=== PATIENT | male | born 1950 | race Caucasian/White ===

== ENCOUNTER 2019-10-22 10:14 | Outpatient (CLI) | payer MEDICARE, SELFPAY ==
--- NOTE | ~2019-10-22 | CT_ITS ---
EXAMINATION: CTA chest DATE: 10/22/2019 11:00 INDICATION: Coronary artery disease, history of ascending aortic aneurysm TECHNIQUE: Computed tomographic angiography (CTA) of the chest was performed with 100 mL Omnipque-350 intravenous contrast. Maximum intensity projection 3D-reconstructions of the aorta and other arterie s were constructed by the technologist on a separate workstation. The dose-length product (DLP) was 2 68.33 mGy-cm. Automated exposure control and iterative reconstruction technique were employed. COMPARISON: 11/02/2018 FINDINGS: There is stable enlargement of the ascending aorta measuring 4.6 cm at the sinuses of Valsa lva. No dissection is identified. The heart size is normal. There is calcified coronary artery athero sclerosis. There is mild emphysema. Dependent atelectasis is noted. Calcified pulmonary nodules and c alcified subcarinal lymph nodes are consistent with old granulomatous disease. There is no pleural e ffusion or pneumothorax. Mild bilateral gynecomastia is noted. There is severe thoracic spondylosis. IMPRESSION: 1. Stable enlargement of the ascending aorta at the level of the sinuses of Valsalva. No dissection. Reviewed, dictated and finalized at location A. N MAKER HAND IMPRESSION: 1. Stable enlargement of the ascending aorta at the level of the sinuses of Caitlin neno. No dissection.
[2019-10-22 10:50] LABS: Blood Urea Nitrogen 15 mg/dL (8-26); Estimated Glomerular Filt Rate > 60
== END 2019-10-22 10:15 | disposition home or self-care (01) ==
PROVIDERS: PCP Family Medicine; Visit Provider Internal Medicine Cardiovascular Disease
DX: I25.10 Atherosclerotic heart disease of native coronary artery without angina pectoris (principal); I71.2 Thoracic aortic aneurysm, without rupture
CPT/HCPCS: 71275; Q9967

== ENCOUNTER 2020-03-10 06:54 | Outpatient (CLI) | payer MEDICARE, SELFPAY ==
--- NOTE | ~2020-03-10 | CT_ITS ---
EXAMINATION: CT soft tissue neck w con EXAM DATE: 03/10/2020 07:38 INDICATION: Enlarged right-sided lymph nodes. TECHNIQUE: Spiral CT of the neck was performed following intravenous injection of 75 mL Omnipaque 350 . Axial, coronal and sagittal images were reviewed. The dose-length product (DLP) for this examinat ion was 534.34 mGy-cm. The exposure was tailored according to patient size (auto mA exposure control ), and iterative reconstruction (ASIR) was used as additional dose reduction technique. There is no prior study for comparison. FINDINGS: There is an externally placed marker with a normal-appearing submandibular gland deep to th is. The thyroid gland is unremarkable. The submandibular and parotid glands are symmetric. There is no cervical lymphadenopathy. There are no masses identified. The superior mediastinum is unre markable. The airway is unremarkable. Parapharyngeal and pre-glottic fat planes are preserved. Mild bilateral carotid bulb arterial sclerosis, causing mild stenosis on the right. Left vertebral ar brandy is dominant, no cervical arterial dissection. The orbits are unremarkable. Mild ethmoid mucop eriosteal thickening. Mastoid air cells are well aerated. Mild upper lobe emphysema. There is cervi ching spondylosis. IMPRESSION: No cervical lymphadenopathy or mass. Reviewed, dictated and finalized at location B.
[2020-03-10 07:25] LABS: Estimated Glomerular Filt Rate > 60
== END 2020-03-10 06:55 | disposition home or self-care (01) ==
LOC: ANHIMG 07:00
PROVIDERS: PCP Family Medicine; Visit Provider Physician Assistant
DX: R59.1 Generalized enlarged lymph nodes (principal); Z72.0 Tobacco use
CPT/HCPCS: 36415; 70491; Q9967

== ENCOUNTER 2021-11-02 08:23 | Outpatient (CLI) | payer MEDICARE, SELFPAY ==
--- NOTE | ~2021-11-02 | CT_ITS ---
EXAMINATION: CTA chest DATE: 11/02/2021 09:09 INDICATION: Thoracic aortic aneurysm TECHNIQUE: Computed tomographic angiography (CTA) of the chest was performed without and with 100 mL Omnipque-350 intravenous contrast. Maximum intensity projection 3D-reconstructions of the aorta and o ther arteries were constructed by the technologist on a separate workstation. The dose-length product (DLP) was 357.33 mGy-cm. Automated exposure control and iterative reconstruction technique were empl oyed. COMPARISON: 10/22/2019 FINDINGS: There is stable fusiform enlargement of the ascending aorta measuring 4.6 cm at the sinuses of Valsalva. No dissection is identified. There is mild emphysema. There is mild dependent atelectas is. The heart size is normal. There is no pleural effusion or pneumothorax. Bilateral gynecomastia is noted. Calcified pulmonary nodules and calcified subcarinal lymph nodes lymph nodes are consistent w ith old granulomatous disease. There is severe thoracic spondylosis. IMPRESSION: 1. Stable fusiform aneurysm of the ascending aorta at the sinuses of Valsalva without dissection. Reviewed, dictated and finalized at location F. IBILITY CONSULTANT IMPRESSION: 1. Stable fusiform aneurysm of the ascending aorta at the sinuses of Valsalva w ithout dissection.
[2021-11-02 08:59] LABS: Estimated Glomerular Filt Rate > 60
== END 2021-11-02 08:24 | disposition home or self-care (01) ==
PROVIDERS: PCP Family Medicine; Visit Provider Internal Medicine Cardiovascular Disease
DX: I71.2 Thoracic aortic aneurysm, without rupture (principal)
CPT/HCPCS: 71275; Q9967

== ENCOUNTER 2022-08-18 07:55 | Outpatient (CLI) | payer MEDICARE, SELFPAY ==
--- NOTE | ~2022-08-18 | CT_ITS ---
EXAMINATION: CTA chest DATE: 08/18/2022 08:27 INDICATION: Ascending aortic aneurysm TECHNIQUE: Computed tomography angiography (CTA) of the chest was performed with 100 mL Omnipaque-350 intravenous contrast timed to evaluate the pulmonary arteries. Coronal maximum intensity projection 3D-reconstructions were created by the technologist. Automated exposure control and iterative reconst ruction technique were employed. Exam dose: 519.12 mGy-cm total exam DLP. COMPARISON: November 02, 2021 CTA chest FINDINGS: The ascending aorta at the sinuses of Valsalva measures up to approximately 4.4 cm maximal diameter. Mid ascending aorta measures approximately 3.5 cm diameter. Mid aortic arch measures approx imately 2.6 cm diameter. Descending thoracic aorta measures approximately 2.4 cm diameter. No thoraci c aortic dissection. The abdominal aorta in the suprarenal and renal level is of normal caliber, with atherosclerotic calc ification, without dissection. Calcifications at the origins of the celiac and superior mesenteric an d renal arteries. Normal heart size. Thoracic aortic, great vessel and coronary artery calcifications. Heart size is normal. No pericardial or pleural effusion. Normal size and homogeneous enhancement of the thyroid gland. No hilar or mediastinal mass lesion or lymphadenopathy. Calcified subcarinal nodes, left lower lobe calcified pulmonary granulomas and calci fied splenic granulomas, consistent with old granulomatous disease. Minimal dependent primarily right lower lobe atelectasis. Mild emphysematous changes. No pulmonary in filtrate or consolidation or suspicious pulmonary mass lesion is noted. Normal morphology of the adrenal glands. Cholelithiasis. No gallbladder wall thickening or pericholecystic fluid or fat stranding. Small sliding hiatal hernia. Degenerative disc disease in the lower cervical spine. Degenerative change of the thoracic spine incl uding diffuse idiopathic skeletal hyperostosis in the lower thoracic region. No suspicious osteolytic or osteoblastic lesions are noted. IMPRESSION: Atherosclerosis; no interval enlargement of ascending aorta since 11/02/2021 Mild emphysema Cholelithiasis Small sliding hiatal hernia Reviewed, dictated and finalized at Location A. Reviewed, dictated and finalized at location B. TECHNICIAN IMPRESSION: Atherosclerosis; no interval enlargement of ascending aorta since Mild emphysema Cholelithiasis Small sliding hiatal hernia
[2022-08-18 08:20] LABS: Estimated Glomerular Filt Rate > 60
== END 2022-08-18 07:56 | disposition home or self-care (01) ==
PROVIDERS: PCP Family Medicine; Visit Provider Internal Medicine Cardiovascular Disease
DX: I71.40 Abdominal aortic aneurysm, without rupture, unspecified (principal); I25.10 Atherosclerotic heart disease of native coronary artery without angina pectoris; J43.9 Emphysema, unspecified; K80.20 Calculus of gallbladder without cholecystitis without obstruction; K44.9 Diaphragmatic hernia without obstruction or gangrene
CPT/HCPCS: 71275; Q9967

== ENCOUNTER 2023-03-05 13:55 | Emergency (ER) | payer MEDICARE, SELFPAY ==
[2023-03-05 14:02] VITALS: BP 142/72; PULSE 79; RESP 16; TEMP 36.6; O2SAT 99
--- NOTE | 2023-03-05 14:07 | ED.SKABFB ---
HPI - Skin/Abscess/Foreign Bdy General Chief complaint: Skin/Abscess/Foreign Body Stated complaint: bump on left side Time Seen by Provider: 03/05/23 14:08 Source: patient Mode of arrival: ambulatory Limitations: no limitations History of Present Illness HPI narrative: 72 y/o male presented for c/o 'bump on back' first noticed about one week ago. Reports soft round area to left lower back. Denies any pain, redness, or drainage from the site. Denies injury. Patient has history of basal cell and followed with dermatology but has not been in a few years. Denies any other skin concerns at this time. Related Data Home Medications Medication Instructions Recorded Confirmed atorvastatin 40 mg tablet 40 mg PO DAILY 08/15/19 03/05/23 cholecalciferol (vitamin D3) 25 1,000 unit PO DAILY 08/15/19 01/25/23 mcg (1,000 unit) chewable tablet clopidogrel 75 mg tablet 75 mg PO DAILY 08/15/19 01/25/23 metoprolol succinate 25 mg 25 mg PO DAILY 08/15/19 03/05/23 tablet,extended release 24 hr multivitamin 1 tablet PO DAILY 08/15/19 03/05/23 trandolapril 2 mg tablet 2 mg PO DAILY 08/15/19 03/05/23 aspirin 81 mg tablet,delayed 81 mg PO DAILY 11/02/19 03/05/23 release ezetimibe 10 mg tablet 10 mg PO DAILY 11/10/20 03/05/23 Allergies Allergy/AdvReac Type Severity Reaction Status Date / Time No Known Allergies Allergy Verified 01/25/23 09:05 Review of Systems Review of Systems: CONSTITUTIONAL: Denies body aches, fever, chills, or sweats. EYES: Denies visual changes, redness, or discharge. ENT: Denies rhinorrhea, congestion CARDIOVASCULAR: Denies chest pain, palpitations, or edema. RESPIRATORY: Denies cough or dyspnea. GASTROINTESTINAL: Denies abdominal pain, nausea, vomiting, or diarrhea. SKIN: per HPI MUSCULOSKELETAL: Denies back pain, joint pain, or myalgia. NEUROLOGIC: Denies headache, numbness, tingling, or weakness. [facility] Past Medical History Medical History (Updated 03/05/23 @ 14:32 by Tania Black, MEDTRONICS TECHNICIAN) Ascending aortic aneurysm Atherosclerotic heart disease of [place] coronary artery without angina pectoris Hypertensive heart disease without heart failure Paroxysmal atrial fibrillation Type 2 diabetes mellitus with hyperglycemia Surgical History Surgical History History of bilateral cataract extraction Family History Family History Sibling Patient's brother is in good health Mother Carcinoma of colon Social History Social History Smoking packs per day: 0.75 Smoking cigarettes per day: 15.0 Years smoked: 27 Smoking pack-years: 20.25 Smoking status: Former smoker Tobacco type: cigarettes Second hand tobacco smoke exposure: No Smoking end date: 09/12/16 Alcohol intake: never Substance use: never Substance use type: does not use Living arrangements: with family Occupation/Education: retired Gender identity (if verbalized by the patient): Male Sexual Orientation (if Verbalized by the Patient): Straight or Heterosexual Comments At time of signature, I have reviewed and agree with nursing past medical, surgical, social and family history unless otherwise noted. Please see nursing chart for further information. There is no relevant family history pertinent to the presenting complaint Exam Narrative: GENERAL: Well-appearing HEAD: Normocephalic, atraumatic. EYES: conjunctivae clear, and EOMI. ENT: Mucous membranes moist. Oropharynx without edema, erythema or lesions. NECK: Supple. No lymphadenopathy CHEST: Clear to auscultation. HEART: Regular rate and rhythm. SKIN: Warm, dry. Left lower back approx 10th rib area with approx 6cm diameter soft, moveable, nontender slightly raised area c/w lipoma. No induration, fluctuance, drainage, bruising or redness. NEURO: Alert and oriented x3.
== END 2023-03-05 14:17 | disposition home or self-care (01) ==
PROVIDERS: Emergency Provider Nurse Practitioner Family; PCP Family Medicine
DX: D17.1 Benign lipomatous neoplasm of skin and subcutaneous tissue of trunk (principal); Z87.891 Personal history of nicotine dependence; I25.10 Atherosclerotic heart disease of native coronary artery without angina pectoris; I11.9 Hypertensive heart disease without heart failure; I48.0 Paroxysmal atrial fibrillation; E11.9 Type 2 diabetes mellitus without complications; Z79.82 Long term (current) use of aspirin
CPT/HCPCS: 99211; G0463

== ENCOUNTER → 2023-03-21 08:32 | Outpatient (CLI) | payer MEDICARE, SELFPAY ==
--- NOTE | ~2023-03-21 | US_ITS ---
EXAMINATION: US soft tissue chest INDICATION: Soft tissue mass of left lateral chest TECHNIQUE: Limited ultrasound is performed in the area of clinical interest. COMPARISON: 05/31/2015 FINDINGS: There appears to be a small hernia of the left flank in the area of clinical concern. When compared to prior CT examinations, this corresponds to a lateral hernia of the left lower chest/flank containing fat and nonobstructed bowel. No suspicious mass is identified. IMPRESSION: 1. Small hernia of the left flank. Reviewed, dictated and finalized at location B.
== END ==
PROVIDERS: PCP Family Medicine; Visit Provider Physician Assistant
DX: R22.2 Localized swelling, mass and lump, trunk (principal)
CPT/HCPCS: 76604

== ENCOUNTER 2023-11-04 12:37 | Emergency (ER) | payer MEDICARE, SELFPAY ==
[2023-11-04 12:45] VITALS: BP 138/74; PULSE 64; RESP 20; TEMP 35.9; O2SAT 99
--- NOTE | 2023-11-04 12:50 | ED.GENADULT ---
HPI - General Adult General Chief complaint: Unspecified Stated complaint: Jaw Pain Time Seen by Provider: 11/04/23 12:50 Source: patient, RN notes reviewed and old records reviewed Mode of arrival: ambulatory Limitations: no limitations History of Present Illness HPI narrative: 73-year-old male presents to the [facility] with left jaw pain when the eating. Started this morning when he was eating breakfast. Pain does not radiate anywhere. Has caps, partial dental Minor amount of swelling noted Onset (ago): hour(s) Treatments prior to arrival: none Related Data Home Medications Medication Instructions Recorded Confirmed atorvastatin 40 mg tablet 40 mg PO DAILY 08/15/19 09/27/23 cholecalciferol (vitamin D3) 25 1,000 unit PO DAILY 08/15/19 09/27/23 mcg (1,000 unit) chewable tablet clopidogrel 75 mg tablet 75 mg PO DAILY 08/15/19 09/27/23 metoprolol succinate 25 mg 25 mg PO DAILY 08/15/19 09/27/23 tablet,extended release 24 hr multivitamin 1 tablet PO DAILY 08/15/19 09/27/23 trandolapril 2 mg tablet 2 mg PO DAILY 08/15/19 09/27/23 aspirin 81 mg tablet,delayed 81 mg PO DAILY 11/02/19 09/27/23 release ezetimibe 10 mg tablet 10 mg PO DAILY 11/10/20 09/27/23 Allergies Allergy/AdvReac Type Severity Reaction Status Date / Time No Known Allergies Allergy Verified 09/27/23 09:33 Review of Systems Review of Systems: All systems reviewed & are unremarkable except as noted in HPI and below Constitutional: Constitutional: Reports no additional constitutional complaints Eyes: Eyes: Reports no additional eye complaints ENT: Reports as per HPI Cardiovascular: Cardiovascular: Reports no additional cardiovascular complaints, Denies chest pain and Denies dyspnea Respiratory: Respiratory: Reports no additional respiratory complaints, Denies chest congestion, Denies cough and Denies dyspnea Gastrointestinal: Gastrointestinal: Reports no additional gastrointestinal complaints, Denies abdominal pain, Denies nausea and Denies vomiting Musculoskeletal: Musculoskeletal: Reports no additional musculoskeletal complaints Integumentary/Breasts: Skin/Breast: Reports system reviewed and no additional complaints, except as docu Neurologic: Reports system reviewed and no additional complaints, except as documented Psychiatric: Psychiatric: Reports no additional psychiatric complaints Allergic/Immunologic: Allergic/Immunologic: Reports no additional allergic/immunologic complaints PMFSH Past Medical History Medical History Ascending aortic aneurysm Atherosclerotic heart disease of [place] coronary artery without angina pectoris Hypertensive heart disease without heart failure Paroxysmal atrial fibrillation Type 2 diabetes mellitus with hyperglycemia Surgical History Surgical History History of bilateral cataract extraction Family History Family History Sibling Patient's brother is in good health Mother Carcinoma of colon Social History Social History Smoking packs per day: 0.75 Smoking cigarettes per day: 15.0 Years smoked: 27 Smoking pack-years: 20.25 Smoking status: Former smoker Tobacco type: cigarettes Second hand tobacco smoke exposure: No Smoking end date: 09/12/16 Alcohol intake: never Substance use: never Substance use type: does not use Living arrangements: with family Occupation/Education: retired Gender identity (if verbalized by the patient): Male Sexual Orientation (if Verbalized by the Patient): Straight or Heterosexual Comments At the time of my signature, I reviewed and agree with the nursing past medical, surgical, social, and family history. There is no relevant family history pertinent to the patient complaint. Exam Const: General: cooperative, he
== END 2023-11-04 13:04 | disposition home or self-care (01) ==
PROVIDERS: Emergency Provider Nurse Practitioner; PCP Family Medicine
DX: R68.84 Jaw pain (principal); Z87.891 Personal history of nicotine dependence; I25.10 Atherosclerotic heart disease of native coronary artery without angina pectoris; I10 Essential (primary) hypertension; I48.0 Paroxysmal atrial fibrillation; E11.9 Type 2 diabetes mellitus without complications; Z98.42 Cataract extraction status, left eye; Z98.41 Cataract extraction status, right eye; Z79.82 Long term (current) use of aspirin
CPT/HCPCS: 99213; G0463

== ENCOUNTER 2024-05-31 09:04 | Emergency (ER) | payer MEDICARE, SELFPAY ==
[2024-05-31 09:37] VITALS: BP 124/81; PULSE 71; RESP 16; TEMP 36.5; O2SAT 98
--- NOTE | 2024-05-31 10:15 | ED.URI ---
HPI - URI/Sore Throat General Chief Complaint: Upper Respiratory Infection Stated Complaint: Sinus Infection Symptoms Source: patient and RN notes reviewed Mode of arrival: ambulatory Limitations: no limitations History of Present Illness HPI Narrative: 74-year-old male with hx DM, paroxysmal afib, and CAD presented for complaint of nasal congestion and cough for over 1 week. The day prior to symptom onset he had COVID and flu vaccines. He denies shortness of breath, wheezing, nausea, vomiting diarrhea, fevers or body aches. Not taking anything for symptoms. MD elicited complaint: cough Related Data Home Medications Medication Instructions Recorded Confirmed atorvastatin 40 mg tablet 40 mg PO DAILY 08/15/19 05/31/24 cholecalciferol (vitamin D3) 25 1,000 unit PO DAILY 08/15/19 05/31/24 mcg (1,000 unit) chewable tablet clopidogrel 75 mg tablet 75 mg PO DAILY 08/15/19 05/31/24 metoprolol succinate 25 mg 25 mg PO DAILY 08/15/19 05/31/24 tablet,extended release 24 hr multivitamin 1 tablet PO DAILY 08/15/19 05/31/24 trandolapril 2 mg tablet 2 mg PO DAILY 08/15/19 05/31/24 aspirin 81 mg tablet,delayed 81 mg PO DAILY 11/02/19 05/31/24 release ezetimibe 10 mg tablet 10 mg PO DAILY 11/10/20 05/31/24 Allergies Allergy/AdvReac Type Severity Reaction Status Date / Time No Known Allergies Allergy Verified 05/31/24 09:33 Review of Systems Review of Systems: CONSTITUTIONAL: Denies malaise, chills, sweats, fever EYES: Denies visual changes, redness, or discharge ENT: Reports rhinorrhea, congestion, denies otalgia, sore throat CARDIOVASCULAR: Denies chest pain, palpitations, edema RESPIRATORY: Reports cough, post nasal drainage. Denies dyspnea GASTROINTESTINAL: Denies abdominal pain, nausea, vomiting, diarrhea SKIN: Denies rash or itching MUSCULOSKELETAL: Denies myalgia NEUROLOGIC: Denies headache All systems reviewed & are unremarkable except as noted in HPI and below PMFSH Past Medical History Medical History Ascending aortic aneurysm Atherosclerotic heart disease of [place] coronary artery without angina pectoris Hypertensive heart disease without heart failure Paroxysmal atrial fibrillation Type 2 diabetes mellitus with hyperglycemia Surgical History Surgical History History of bilateral cataract extraction Family History Family History Sibling Patient's brother is in good health Mother Carcinoma of colon Social History Social History Smoking packs per day: 0.75 Smoking cigarettes per day: 15.0 Years smoked: 27 Smoking pack-years: 20.25 Smoking status: Former smoker Tobacco type: cigarettes Second hand tobacco smoke exposure: No Smoking end date: 09/12/16 Alcohol intake: never Substance use: never Substance use type: does not use Living arrangements: with family Occupation/Education: retired Gender identity (if verbalized by the patient): Male Sexual Orientation (if Verbalized by the Patient): Straight or Heterosexual Comments At time of signature, I have reviewed and agree with nursing past medical, surgical, social and family history unless otherwise noted. Please see nursing chart for further information. There is no relevant family history pertinent to the presenting complaint Exam Narrative: GENERAL: well-appearing, nontoxic no acute distress. EYES: PERRLA, conjunctivae clear, yellow drainage to left inner canthus (2/2 dye) ENT: Mucous membranes moist. Bruising to nose (2/2 procedure) TMs pearly grant with dull light reflex bilaterally; no tragal tenderness. Oropharynx not erythematous without lesions or exudate, no drooling, no hoarseness, no trismus, uvula midline. No tripod positioning, muffled voice, soft palate or pharyngeal wall bulgi
== END 2024-05-31 10:26 | disposition home or self-care (01) ==
PROVIDERS: Emergency Provider Nurse Practitioner Family; PCP Family Medicine
DX: J06.9 Acute upper respiratory infection, unspecified (principal); Z87.891 Personal history of nicotine dependence; I25.10 Atherosclerotic heart disease of native coronary artery without angina pectoris; I10 Essential (primary) hypertension; I48.0 Paroxysmal atrial fibrillation; E11.9 Type 2 diabetes mellitus without complications; Z98.42 Cataract extraction status, left eye; Z98.41 Cataract extraction status, right eye
CPT/HCPCS: 99213; G0463

== ENCOUNTER 2024-06-28 08:12 | Outpatient (CLI) | payer MEDICARE, SELFPAY ==
--- NOTE | ~2024-06-28 | CT_ITS ---
EXAMINATION: CTA chest DATE: 06/28/2024 08:57 INDICATION: Ascending aortic aneurysm without rupture. TECHNIQUE: Computed tomographic angiography (CTA) of the chest was performed with 100 mL Omnipaque-35 0 intravenous contrast. Automated exposure control and iterative reconstruction technique were employ ed. The dose-length product was 523.44 mGy-cm. Maximum intensity projection 3D-reconstructions of the aorta and other arteries were constructed by the technologist on a separate workstation. COMPARISON: CT 08/18/22 FINDINGS: There is mild emphysema. There is mild atelectasis bilaterally. Calcified bilateral lung no dules and calcified left hilar lymph nodes are consistent with old granulomatous disease. Cardiomegal y is noted. There are coronary artery calcifications. No pericardial effusion. There is a gallstone i n the gallbladder, which is normal in size. There is mild bilateral gynecomastia. Ascending aorta ita sures 4.6 cm at the sinuses of Valsalva, 3.3 cm at the sinotubular junction, 3.6 cm in the mid ascend ing aorta, 2.8 cm at the aortic isthmus, and 2.9 cm in the mid descending aorta. IMPRESSION: 1. Ectasia of the aortic root measuring 4.6 cm at the sinuses of Valsalva. 2. Mild emphysema. Reviewed, dictated and finalized at location A.
[2024-06-28 08:51] LABS: Estimated Glomerular Filt Rate > 60
== END 2024-06-28 08:13 | disposition home or self-care (01) ==
PROVIDERS: PCP Family Medicine; Visit Provider Internal Medicine Cardiovascular Disease
DX: I71.21 Aneurysm of the ascending aorta, without rupture (principal); J43.9 Emphysema, unspecified
CPT/HCPCS: 71275; Q9967

== ENCOUNTER 2024-06-29 08:13 | Outpatient (CLI) | payer MEDICARE, SELFPAY ==
--- NOTE | 2024-06-29 15:26 | WPDPFTINT ---
PFT Procedure Performed PFT Procedure Performed Spirometry with Pre/Post Bronchodilator Plethysmography (Lung Vol) Diffusing Cap (DLCO) Flow Vol Loop PFT Interpretation This is a pulmonary function test with pre and post-bronchodilator spirometry, plethysmography and diffusing capacity. The test was performed and results interpreted in accordance with the 2019 and 2005 ATS/ERS Task Force guidelines respectively using the Global Lung Function Initiative-2012 reference equations. Patient demonstrated good effort and cooperation. Reproducibility criteria were met. The quality of the pre bronchodilator spirometry maneuver was Grade A and post bronchodilator spirometry maneuver was Grade A. Findings: Spirometry: There is decreased maximal expiratory airflow at low lung volumes with concave expiratory flow tracing. The contour the inspiratory flow tracing is normal. The pre bronchodilator FVC is 3.75 L, 89% predicted. The pre bronchodilator FEV1 is 2.50 L, 79% predicted. The pre bronchodilator FEV1: FVC ratio 67%. The post bronchodilator FVC is 3.81 L, representing a 2% increase. The post bronchodilator FEV1 is 2.44 L, representing a 2% decrease. The post bronchodilator FEV1: FVC ratio is 64%. Plethysmography: The total lung capacity is 7.52 L, 104% predicted. The functional residual capacity is 3.69 L, 95% predicted. The residual volume is 3.55 L, 138% predicted. The residual volume: Total lung capacity ratio is 47%. Diffusing capacity: The diffusing capacity unadjusted for hemoglobin and carboxyhemoglobin is 15.2, 59% predicted. The diffusing capacity adjusted for alveolar volume is 3.35, 89% predicted. Impression: The spirometry is normal without evidence of an obstructive abnormality. There is no significant improvement after inhaling a single dose of albuterol. The increase in residual volume to total lung volume ratio is consistent with hyperinflation. The diffusing capacity unadjusted for hemoglobin and carboxyhemoglobin is moderately decreased and normalizes when adjusted for alveolar volume. There are no prior studies for comparison
== END 2024-06-29 08:14 | disposition home or self-care (01) ==
LOC: ANHPFT 08:13
PROVIDERS: PCP Family Medicine; Visit Provider Physician Assistant Medical
DX: R05.3 Chronic cough (principal); Z87.891 Personal history of nicotine dependence
CPT/HCPCS: 94060; 94726; 94729

== ENCOUNTER 2024-08-21 08:15 | Outpatient (RCR) | payer MEDICARE, SELFPAY ==
[2024-07-03 08:13] VITALS: BMI 24.0
[2024-07-03 08:20] VITALS: BMI 24.0
[2024-08-21 08:20] VITALS: BMI 24.0
== END 2024-09-18 11:20 | disposition home or self-care (01) ==
LOC: ANHDMC 08:15
PROVIDERS: PCP Family Medicine; Visit Provider Family Medicine
DX: E11.65 Type 2 diabetes mellitus with hyperglycemia (principal); Z71.3 Dietary counseling and surveillance
CPT/HCPCS: 97802; 97803